=== PATIENT | female | born 1960 | race Caucasian/White ===

== ENCOUNTER 2021-03-31 05:57 | Day surgery (SDC) | payer OTHER, SELFPAY ==
[2021-03-31 06:34] VITALS: BP 152/90; PULSE 77; RESP 18; TEMP 36.6; O2SAT 98; BMI 45.6
[2021-03-31] MEDS: Lactated Ringers 1,000 ML 100 ML IV (07:06)
--- NOTE | 2021-03-31 07:15 | EKG12_ITS ---
Test Reason : PREOP Blood Pressure : / mmHG Vent. Rate : 074 BPM Atrial Rate : 074 BPM P-R Int : 214 ms QRS Dur : 074 ms QT Int : 396 ms P-R-T Axes : 016 -14 040 degrees QTc Int : 439 ms Sinus rhythm with 1st degree A-V block Otherwise normal ECG Confirmed by IRAJ EDWARD, RITO ([id number]), editor managing director DARRION JUNIOR ([id number]) on 04/06/2021 9:12:26 AM Referred By: Pamela Mcdonnell Confirmed By:RITO GALO MD
[2021-03-31 07:23] LABS: Anion Gap 7 (5-15); BUN 22 mg/dL (7-18); BUN/Creat Ratio 20.6 RATIO (10-20); Calcium,Total 9.1 mg/dL (8.5-10.1); Chloride 107 mmol/L (98-107); Creatinine, Serum 1.07 mg/dL (0.55-1.02); EST Glomerular Filtration Rate 55 mL/min (>60); Est Glom Filt Rate - Afr Amer 67 mL/min (>60); Estimated Creatinine Clearance 52.34 ml/min; Glucose 170 mg/dL (74-106); Potassium 4.3 mmol/L (3.5-5.1); Sodium Level 139 mmol/L (136-145)
--- NOTE | 2021-03-31 07:30 | BLA_PTH ---
PATIENT: MALGORZATA SANTANA [place] [facility] [id number] AGE/SX: 60/F ROOM: RE03/31/[address]: Dr. Pamela Mcdonnell MD : 1960 BED: DIS: 03/31/2021 SPEC #: [id number] RECD: 03/31/21 10:22 STATUS: ZOHAIB RELeann #: [id number] ADRIAN: 03/31/21 07:[address]: Pamela Mcdonnell DEPT: SURGICAL PATHOLOGY RECD BY: Diana Bass ENTERED: 03/31/21 11:03 SP TYPE: BLADDER BX OTHR DR: SPEEDY Diaz Tissues: Urinary bladder, NOS Procedures: Surgery Specimen Level IV HEADER OPERATION: Cysto, biopsy, fulguration, bladder tumor PRE-OP DIAGNOSIS: Lesion of bladder TISSUE SUBMITTED: Bladder lesion MICROSCOPIC DIAGNOSIS Bladder lesion, biopsy: Fragments of squamous mucosa with extensive hyperkeratosis and mild chronic inflammation. Negative for malignancy. See comment. SHYANNE:ivelisse 04/03/2021 COMMENT The entire specimen consists of fragments of squamous mucosa. Focal bacterial colonization are also noted in superficial keratinized layer. Detrusor muscle is not seen in the specimen. Clinical correlation and appropriate follow up are necessary. Case has been reviewed in consultation with Dr. Marino who concurs with the above diagnosis. IDC:AM MICROSCOPIC DESCRIPTION Slides are reviewed. GROSS DESCRIPTION Received in fixative is one container labeled with the patient's name and designated bladder lesion. The specimen consists of multiple irregular fragments of iglesias-pink soft tissue that in aggregate measure 1 x 0.3 x 0.1 cm. The specimen is totally submitted in one cassette. / SHYANNE:ivelisse 03/31/21 TC:5 CPT: 57523
--- NOTE | 2021-03-31 07:50 | PCM.HP.STD ---
HPI - General HPI Narrative MALGORZATA SANTANA, is a 60 F who presents for bladder biopsy of lesion found in the office. Informed consent was obtained. [facility]LY [facility] Medical History (Updated 03/31/21 @ 07:[address] Pamela Mcdonnell MD) Alcohol use Anemia Arthritis Dietary restriction High cholesterol History of diverticulitis History of edema History of renal disease Hypertension Insulin dependent diabetes mellitus Lesion of bladder Non-smoker Wears glasses Home Medications aspirin [Aspir-81] 81 mg PO DAILY 03/30/21 [History Last Taken Unknown] clonidine HCl 0.1 mg PO BID 03/30/21 [History Last Taken 03/31/21] cyanocobalamin (vitamin B-12) [Vitamin B-12] 1,000 mcg PO DAILY 03/30/21 [History Last Taken Unknown] d-mannose 2,000 mg PO DAILY 03/30/21 [History Last Taken Unknown] estradiol 1 g VAGINAL MOWEFR 03/30/21 [History Last Taken Unknown] ibuprofen 600 mg PO DAILY 03/30/21 [History Last Taken Unknown] insulin glargine [Lantus Solostar U-100 Insulin] 40 unit SUBCUT DAILY 03/30/21 [History Last Taken Unknown] insulin glargine [Lantus Solostar U-100 Insulin] 50 unit SUBCUT QPM 03/30/21 [History Last Taken 03/30/21] simvastatin 40 mg PO DAILY 03/30/21 [History Last Taken Unknown] sitagliptin [Januvia] 100 mg PO DAILY 03/30/21 [History Last Taken Unknown] Allergy/AdvReac Type Severity Reaction Status Date / Time amoxicillin Allergy Swelling Verified 03/30/21 09:46 ciprofloxacin Allergy Rash Verified 03/30/21 09:46 nitrofurantoin Allergy Hives Verified 03/30/21 09:46 Penicillins Allergy EDEMA Verified 03/30/21 09:46 propoxyphene Allergy Rash Verified 03/30/21 09:46 [From Darvocet-N] Sulfa (Sulfonamide Allergy Hives Verified 03/30/21 09:46 Antibiotics) sulfamethoxazole Allergy Rash Verified 03/30/21 09:46 trimethoprim Allergy Swelling Verified 03/30/21 09:46 glipizide AdvReac PT UNSURE Verified 03/30/21 09:46 OF REACTION hydrochlorothiazide AdvReac cough Verified 03/31/21 06:31 lisinopril AdvReac COUGH Verified 03/30/21 09:46 metformin AdvReac Diarrhea Verified 03/30/21 09:46 PLASTIC TAPE Allergy Rash Uncoded 03/30/21 09:46 Surgical History History of Hx laparoscopic cholecystectomy Hx of colonoscopy Hx of hysterectomy Hx of total knee arthroplasty Social History Smoking Status: Never smoker ROS Constitutional Constitutional: Denies anorexia, body ache(s), change in weight, chills, fatigue or fever(s) Eyes Eyes: Denies change in vision ENT HEENT: Denies loss taste/smell Cardiovascular Cardiovascular: Denies chest pain, dizziness or dyspnea Respiratory/Chest Respiratory/Chest: Denies cough or difficulty clearing secretions Gastrointestinal Gastrointestinal: Denies abdominal pain, change in bowel habits, nausea, taste impaired or vomiting Genitourinary Genitourinary: Denies abdominal discomfort, dysuria or urinary hesitancy Musculoskeletal Musculoskeletal: Denies abnormal gait, difficulty walking or numbness Integumentary Integumentary: Denies changing lesions, new lesions or rash Neurologic Neurologic: Reports systems reviewed and no addt'l complaints, except as documented Psychiatric Psychiatric: Reports systems reviewed and no addt'l complaints, except as documented Endocrine Endocrinology: Reports systems reviewed and no addt'l complaints, except as documented Hematologic/Lymphatic Hematologic/Lymphatic: Reports systems reviewed and no addt'l complaints, except as documented Allergic/Immunologic Allergic/Immunologic: Reports systems reviewed and no addt'l complaints, except as documented Vital Signs Vital Signs Vital Signs: 03/31/21 06:34 Temperature 97.9 F Temperature Source Temporal Pulse Rate 77 Respiratory Rate 18 Respiratory Pattern Normal Blood Pressure 152/90 H Blood Pressure Mean 110 Blood Pressure Source Monitor Blood Pressure Position Semi-Fowlers Blood Pressure Location Left Forearm Pulse Ox 98 Oxygen Delivery Method Room Air Weight Weight: 128.3 kg Body Mass Index (BMI) 45.6 Physical Exam Const alert, oriented x3 and no apparent distress HEENT normocephalic and head/scalp atraumatic Nose: external nose normal External Ear: external ears normal Eyes General Eye: normal appearance of both eyes Neck supple General: trachea midline Lymph Lymphatic: no lymphedema noted Chest Chest: symmetrical chest wall rise Resp normal respiratory effort, normal air movement, no retractions and no use of accessory muscles Cardio regular rate and regular rhythm GI soft to palpation, non-tender and non-distended no CVA tenderness and external exam normal Back/Spine no CVA tenderness Extremity normal to inspection Skin no rashes or lesions noted, no wounds, no jaundice, no petechiae and no mottling Neuro oriented x3, CN's II-XII intact bilaterally and moves all extremities Psych mental status grossly normal and thought process normal Results Lab / Micro Data Result Diagrams: 03/31/21 06:56 03/31/21 06:56 Labs: Laboratory Results - last 24 hr 03/31/21 06:56: Sodium 139, Potassium 4.3, Chloride 107, Carbon Dioxide 25.0, Anion Gap 7, BUN 22 H, Creatinine 1.07 H, Estim Creat Clear Calc 52.34, Est GFR (MDRD) Af Amer 67, Est GFR (MDRD) Non-Af 55 L, BUN/Creatinine Ratio 20.6 H, Glucose 170 H, Calcium 9.1 Assessment & Plan Assessment/Plan (1) Lesion of bladder: PLAN: cystoscopy with bladder biopsy and fulguration under anesthesia. informed consent obtained Procedure Criteria Type of Procedure Procedure Type: Elective Elective Risks - COVID COVID Risk Discussion: The surgeon/proceduralist and patient have discussed in detail the risk of exposure to and/or potential harm posed by the COVID-19 virus with having a surgery/procedure at this time versus the risk of delaying the surgery/procedure. It is not possible to know either the risk of delaying the surgery or procedure or chance of getting an infection with perfect accuracy, but a joint decision was made between the patient and the surgeon/proceduralist to proceed at this time with the scheduled surgery/procedure as indicated on the consent form.
--- NOTE | 2021-03-31 07:55 | PCM.OPRPT ---
Problems Associated Problem List Diagnoses (1) Lesion of bladder: Report of Operation Date of Procedure: 03/31/21 Pre-Operative Diagnosis: bladder lesion Post-Operative Diagnosis: same Surgery/Procedure Performed:: cystoscopy with bladder biopsy and fulguration Surgeon: Pamela Mcdonnell Type of Anesthesia: General Specimen's removed: Bladder biopsies Description of Procedure: The patient is a 60-year-old female with recurrent urinary tract infections. On evaluation in the office was found to have abnormal weight plaque-like bladder lesions she now presents for definitive identification with biopsy. Informed consent was obtained. Patient was taken operating room and placed on the operating room table. Anesthesia monitored the head, neck, airway, IV access and vital signs throughout the case. Once anesthesia was appropriate ministered, the patient was placed into dorsal lithotomy position was prepped and draped in usual sterile fashion. The cystoscope was inserted through the urethra under direct visualization into the urinary bladder. The bladder appeared less erythematous than in the office. The lesions were found diffusely across the bladder neck and posterior bladder wall. In total 6 biopsies were taken with a flexible biopsy forcep. These were sent for pathologic evaluation. The sites were fulgurated for hemostatic control. At this time the patient's bladder was then emptied and the case was terminated. She tolerated the procedure well without complication and was awakened and taken to the recovery room in good condition. Grafts/Implants Used: none Complications none Admit VTE Documentation VTE Present on Admission: Yes VTE Mechan Device Prophylaxis: SCD's VTE Pharm Prophylaxis ordered?: No Reason prophylaxis not ordered:: Treatment Not Indicated
--- NOTE | 2021-03-31 07:56 | PCM.DC ---
Discharge Instructions Diet Discharge Diet: No restrictions Activity Discharge Activity: Return to Normal Activity May resume sexual activity in: No Restrictions Dressing / Incision Call your doctor if you observe: Fever of 101 or Higher, Inability to urinate, Inability to have a bowel movement and Uncontrolled pain Follow Up Care Please Follow Up With: Pamela Mcdonnell MD When: appt in the office in 1 week. call for appt Test Results: Test results from this visit will be discussed in further detail at your follow-up appointment, if applicable. Discharge Plan Admission Attending Provider: Pamela Mcdonnell Primary Care Provider: Jenna Barraza Discharge Orders/Prescriptions Prescriptions: New oxycodone-acetaminophen [oxycodone-acetaminophen] 1 TABLET tablet 2 tab PO Q8H PRN PRN (Reason: Pain) 4 Days Qty: 10 RF: 0 phenazopyridine [Pyridium] 200 MG tablet 200 mg PO TID PRN PRN (Reason: Bladder Spasms) 7 Days Qty: 30 RF: 0 Continued clonidine HCl 0.1 mg Tablet 0.1 mg PO BID RF: 0 cyanocobalamin (vitamin B-12) [Vitamin B-12] 1,000 mcg Tablet 1,000 mcg PO DAILY RF: 0 aspirin 81 mg Tablet,Delayed Release (Dr/Ec) 81 mg PO DAILY RF: 0 simvastatin 40 mg Tablet 40 mg PO DAILY RF: 0 ibuprofen 600 mg Tablet 600 mg PO DAILY RF: 0 estradiol 0.01 % (0.1 mg/gram) Cream 1 g VAGINAL MOWEFR RF: 0 Januvia 100 mg Tablet 100 mg PO DAILY RF: 0 Lantus Solostar U-100 Insulin 100 unit/mL (3 mL) Insulin Pen 40 unit SUBCUT DAILY RF: 0 Lantus Solostar U-100 Insulin 100 unit/mL (3 mL) Insulin Pen 50 unit SUBCUT QPM RF: 0 d-mannose 500 mg Capsule 2,000 mg PO DAILY RF: 0 Referrals / Follow Up: Jenna Barraza PA [Primary Care Provider] - Disposition Disposition (needs filled in before D/C Order can be placed): Home, Self Care
[2021-03-31 08:11] LABS: Hemoglobin A1c 7.2 % (3.8-5.6)
[2021-03-31 08:22] VITALS: BP 137/78; BP 152/90; PULSE 77; RESP 18; TEMP 35.9; O2SAT 96
[2021-03-31 08:30] VITALS: BP 138/78; BP 152/90; PULSE 74; RESP 16; O2SAT 96
[2021-03-31 08:41] LABS: Bedside Glucose 147 mg/dL (70-110)
[2021-03-31 08:45] VITALS: BP 133/73; BP 152/90; PULSE 63; RESP 18; O2SAT 98
[2021-03-31 09:00] VITALS: BP 125/73; BP 152/90; PULSE 63; RESP 16; TEMP 36.2; O2SAT 99
[2021-03-31 10:00] VITALS: BP 152/90
[2021-03-31 10:16] LABS: Bedside Glucose 176 mg/dL (70-110)
== END 2021-03-31 10:21 | disposition home or self-care (01) ==
LOC: SDC 06:01 → AC 06:03
PROVIDERS: Anesthesiology; PCP Physician Assistant Medical; Referring Provider Urology; Visit Provider Urology
PROC: 0TBB8ZX Excision of Bladder, Via Natural or Artificial Opening Endoscopic, Diagnostic (ICD-10-PCS; CPT 52224; principal; 2021-03-31 07:20)
DX: N32.9 Bladder disorder, unspecified (principal); D64.9 Anemia, unspecified; E11.9 Type 2 diabetes mellitus without complications; E78.00 Pure hypercholesterolemia, unspecified; I10 Essential (primary) hypertension; Z79.1 Long term (current) use of non-steroidal anti-inflammatories (NSAID); Z79.4 Long term (current) use of insulin; Z79.82 Long term (current) use of aspirin; Z87.440 Personal history of urinary (tract) infections
CPT/HCPCS: 00910; 52224; 80048; 82962; 83036; 88305; 93005; J7120

== ENCOUNTER 2021-05-09 08:38 | Day surgery (SDC) | payer OTHER, SELFPAY ==
[2021-05-09] VITALS (8 sets, daily range): BP systolic 115–158; BP diastolic 57–87; PULSE 62–77; RESP 16; TEMP 36.1–36.7; O2SAT 96–100; BMI 45.8
--- NOTE | 2021-05-09 | BLB_PTH ---
PATIENT: MALGORZATA SANTANA [place] [facility] [place][id number] AGE/SX: 60/F ROOM: RE05/09/[address]: Dr. Pamela Mcdonnell MD : 1960 BED: DIS: 05/09/2021 SPEC #: [id number] RECD: 05/09/21 14:27 STATUS: ZOHAIB RELeann #: [id number] ADRIAN: 05/09/21 00:[address]: Pamela Mcdonnell DEPT: SURGICAL PATHOLOGY RECD BY: Nahum Gayle ENTERED: 05/09/21 14:27 SP TYPE: TURB OTHR DR: SPEEDY Diaz Tissues: Urinary bladder, NOS Procedures: Surgery Specimen Level V HEADER OPERATION: Cysto, transurethral resection bladder lesions PRE-OP DIAGNOSIS: Lesion of bladder, urinary tract infection TISSUE SUBMITTED: Bladder biopsy MICROSCOPIC DIAGNOSIS Urinary bladder, transurethral resection: Fragments of benign squamous mucosa with hyperkeratosis. See comment. AM:ivelisse 05/10/2021 COMMENT Detrusor muscle is not represented in the biopsy. MICROSCOPIC DESCRIPTION Slides are reviewed. GROSS DESCRIPTION Received in fixative is one container labeled with the patient's name and designated bladder biopsy. The specimen consists of multiple irregular fragments of light iglesias soft tissue that in aggregate measure 2 x 0.8 x 0.1 cm. The specimen is totally submitted in one cassette. / AM:ivelisse 05/09/21 TC:5 CPT: 11176
[2021-05-09] MEDS: Lactated Ringers 1,000 ML 15 ML IV (09:26)
--- NOTE | 2021-05-09 09:34 | HP.PCM_ITS ---
HPI - General HPI Narrative MALGORZATA SANTANA, is a 60 F who presents for definitive management of her squamous metaplasia and hyperkeratosis of the bladder. Informed consent was obtained. [facility] Medical History (Updated 05/09/21 @ 09:[address] Pamela Mcdonnell MD) Alcohol use Anemia Arthritis Dietary restriction High cholesterol History of diverticulitis History of edema History of renal disease Hypertension Insulin dependent diabetes mellitus Lesion of bladder Non-smoker Urinary tract infection Wears glasses Home Medications Januvia 100 mg PO DAILY 03/30/21 [History Last Taken Unknown] Lantus Solostar U-100 Insulin 40 unit SUBCUT DAILY 03/30/21 [History Last Taken Unknown] Lantus Solostar U-100 Insulin 50 unit SUBCUT QPM 03/30/21 [History Last Taken 03/30/21] aspirin 81 mg PO DAILY 03/30/21 [History Last Taken Unknown] clonidine HCl 0.1 mg PO BID 03/30/21 [History Last Taken 05/09/21] cyanocobalamin (vitamin B-12) [Vitamin B-12] 1,000 mcg PO DAILY 03/30/21 [History Last Taken Unknown] d-mannose 250 mg PO BID 03/30/21 [History Last Taken Unknown] estradiol 1 g VAGINAL MOWEFR 03/30/21 [History Last Taken Unknown] simvastatin 40 mg PO DAILY 03/30/21 [History Last Taken Unknown] ascorbic acid (vitamin C) [Vitamin C] 500 mg PO DAILY 05/03/21 [History Last Taken Unknown] Allergy/AdvReac Type Severity Reaction Status Date / Time amoxicillin Allergy Swelling Verified 05/09/21 09:24 ciprofloxacin Allergy Rash Verified 05/09/21 09:24 nitrofurantoin Allergy Hives Verified 05/09/21 09:24 Penicillins Allergy EDEMA Verified 05/09/21 09:24 propoxyphene Allergy Rash Verified 05/09/21 09:24 [From Darvocet-N] Sulfa (Sulfonamide Allergy Hives Verified 05/09/21 09:24 Antibiotics) sulfamethoxazole Allergy Rash Verified 05/09/21 09:24 trimethoprim Allergy Swelling Verified 05/09/21 09:24 glipizide AdvReac PT UNSURE Verified 05/09/21 09:24 OF REACTION hydrochlorothiazide AdvReac cough Verified 05/09/21 09:24 lisinopril AdvReac COUGH Verified 05/09/21 09:24 metformin AdvReac Diarrhea Verified 05/09/21 09:24 PLASTIC TAPE Allergy Rash Uncoded 05/09/21 09:24 Surgical History History of biopsy of bladder History of Hx laparoscopic cholecystectomy Hx of colonoscopy Hx of hysterectomy Hx of total knee arthroplasty Social History Smoking Status: Never smoker ROS Constitutional Constitutional: Denies chills, fever(s) or weakness Eyes Eyes: Denies change in vision ENT HEENT: Denies change in voice, loss taste/smell or sore throat Cardiovascular Cardiovascular: Denies abdominal pain, diaphoresis, dyspnea, nausea, numbness in extremities, rapid heart rate or vomiting Respiratory/Chest Respiratory/Chest: Denies change in mental status, chest tightness, cough, dyspnea or inability to speak Gastrointestinal Gastrointestinal: Denies abdominal pain, nausea, taste impaired, vomiting or weight changes Genitourinary Genitourinary: Reports urinary urgency; Denies abdominal discomfort, burning urination or hematuria Musculoskeletal Musculoskeletal: Reports systems reviewed and no addt'l complaints, except as documented Integumentary Integumentary: Reports systems reviewed and no addt'l complaints, except as documented Neurologic Neurologic: Reports systems reviewed and no addt'l complaints, except as documented Endocrine Endocrinology: Reports systems reviewed and no addt'l complaints, except as documented Hematologic/Lymphatic Hematologic/Lymphatic: Reports systems reviewed and no addt'l complaints, except as documented Allergic/Immunologic Allergic/Immunologic: Reports systems reviewed and no addt'l complaints, except as documented Vital Signs Vital Signs Vital Signs: 05/09/21 09:26 Temperature 98.1 F Temperature Source Temporal Pulse Rate 77 Respiratory Rate 16 Respiratory Pattern Normal Blood Pressure 145/85 H Blood Pressure Mean 105 Blood Pressure Source Monitor Blood Pressure Position Semi-Fowlers Blood Pressure Location Left Arm Pulse Ox 96 Oxygen Delivery Method Room Air Weight Weight: 129 kg Body Mass Index (BMI) 45.8 Physical Exam Const alert, oriented x3 and no apparent distress HEENT normocephalic, head/scalp atraumatic, external ears normal, external nose normal and moist oral mucous membranes Nose: external nose normal Mouth: lips normal and tongue normal Eyes conjunctivae normal and no scleral icterus Neck supple General: trachea midline Lymph Lymphatic: no lymphedema noted Chest Chest: symmetrical chest wall rise Resp normal respiratory effort, normal air movement, no retractions and no use of accessory muscles Effort and Inspection: able to speak in complete sentences and symmetric chest movement Cardio regular rate and regular rhythm GI soft to palpation, non-tender and non-distended no CVA tenderness, external exam normal and appearance of the vagina normal Back/Spine no CVA tenderness and normal to inspection Extremity normal to inspection Skin no rashes or lesions noted, no wounds, skin turgor normal, no jaundice, no petechiae and no mottling Neuro oriented x3, CN's II-XII intact bilaterally and moves all extremities Psych mental status grossly normal, thought process normal, cooperative and affect normal Assessment & Plan Assessment/Plan (1) Lesion of bladder: (2) Urinary tract infection: PLAN: Proceed with cystoscopy, transurethral resection of bladder lesions under anesthesia. Informed consent obtained.
[2021-05-09 09:35] LABS: Bedside Glucose 155 mg/dL (70-110)
--- NOTE | 2021-05-09 09:41 | PCM.OPRPT ---
Problems Associated Problem List Diagnoses (1) Lesion of bladder: (2) Urinary tract infection: Report of Operation Date of Procedure: 05/09/21 Pre-Operative Diagnosis: Bladder lesions(squamous metaplasia with hyperkeratosis), recurrent urinary tract infection Post-Operative Diagnosis: Same Surgery/Procedure Performed:: Cystoscopy, transurethral resection of bladder lesions Description of Surgical Findings:: Deep resection at the left lateral wall. No obvious perforation. 22 Bulgarian Lloyd catheter placed at the conclusion of the case with clear urine/irrigant out. Surgeon: Pamela Mcdonnell Type of Anesthesia: General Specimen's removed: Bladder lesions Description of Procedure: The patient is a 60-year-old female with recurrent urinary tract infections. She underwent a cystoscopy with white lesions which were biopsied and found to be hyperkeratosis of squamous tissue. Informed consent was obtained for resection of these areas. She was taken to the operating room and placed on the operating room table. Anesthesia monitored the head, neck, airway, IV access and vital signs throughout the case. Once anesthesia was appropriately ministered the patient was placed into dorsal lithotomy position and was prepped and draped in usual sterile fashion. The resectoscope was inserted through the urethra into the urinary bladder using the obturator. The loop was then used to carefully resect these areas of abnormal mucosa. There were 3 lesions approximately 1 cm in size in the posterior bladder wall. There was a large lesion approximately 2.5 cm in size on the left lateral wall. During resection the obturator reflex was seen and this area of resection was slightly deeper than anticipated. No fat was seen. The detrusor was cauterized for hemostatic control. 1 large lesion was left untouched approximately 2.5 cm in diameter on the right lateral wall just lateral to the ureteral orifice. At this time, the bladder was left full and the cystoscope was removed. A 22 Bulgarian Lloyd catheter was inserted with 10 cc in the balloon. The patient was awakened and taken to the recovery room in good condition. Admit VTE Documentation VTE Present on Admission: Yes VTE Mechan Device Prophylaxis: SCD's VTE Pharm Prophylaxis ordered?: No Reason prophylaxis not ordered:: Treatment Not Indicated
--- NOTE | 2021-05-09 09:43 | PCM.DC ---
Discharge Instructions Dressing / Incision Catheter: Giraldo to leg bag Additional Dressing/Incision Instructions:: please give large bag also. Instruct patient to remove giraldo catheter on 05/15/21 before bed Follow Up Care Please Follow Up With: Pamela Mcdonnell MD When: Saturday. Test Results: Test results from this visit will be discussed in further detail at your follow-up appointment, if applicable. Discharge Plan Admission Attending Provider: Pamela Mcdonnell Primary Care Provider: Jenna Barraza Discharge Orders/Prescriptions Prescriptions: No Action clonidine HCl 0.1 mg Tablet 0.1 mg PO BID RF: 0 cyanocobalamin (vitamin B-12) [Vitamin B-12] 1,000 mcg Tablet 1,000 mcg PO DAILY RF: 0 aspirin 81 mg Tablet,Delayed Release (Dr/Ec) 81 mg PO DAILY RF: 0 simvastatin 40 mg Tablet 40 mg PO DAILY RF: 0 estradiol 0.01 % (0.1 mg/gram) Cream 1 g VAGINAL MOWEFR RF: 0 Januvia 100 mg Tablet 100 mg PO DAILY RF: 0 Lantus Solostar U-100 Insulin 100 unit/mL (3 mL) Insulin Pen 40 unit SUBCUT DAILY RF: 0 Lantus Solostar U-100 Insulin 100 unit/mL (3 mL) Insulin Pen 50 unit SUBCUT QPM RF: 0 d-mannose 500 mg Capsule 250 mg PO BID RF: 0 ascorbic acid (vitamin C) [Vitamin C] 500 mg Tablet,Chewable 500 mg PO DAILY RF: 0 Referrals / Follow Up: Jenna Barraza PA [Primary Care Provider] - Disposition Disposition (needs filled in before D/C Order can be placed): Home, Self Care
[2021-05-09] MEDS: Cefazolin 2 GM in 0.9% Normal Saline 100 ML IV (10:39)
[2021-05-09 11:55] LABS: Bedside Glucose 106 mg/dL (70-110)
== END 2021-05-09 14:14 | disposition home or self-care (01) ==
LOC: SDC 08:42 → AC 08:43
PROVIDERS: PCP Physician Assistant Medical; Referring Provider Urology; Visit Provider Urology
PROC: 0TBB8ZZ Excision of Bladder, Via Natural or Artificial Opening Endoscopic (ICD-10-PCS; CPT 52235; principal; 2021-05-09 10:20)
DX: N32.9 Bladder disorder, unspecified (principal); N39.0 Urinary tract infection, site not specified; D64.9 Anemia, unspecified; E11.9 Type 2 diabetes mellitus without complications; E78.00 Pure hypercholesterolemia, unspecified; I10 Essential (primary) hypertension; Z79.4 Long term (current) use of insulin; Z79.82 Long term (current) use of aspirin; Z79.899 Other long term (current) drug therapy; Z87.440 Personal history of urinary (tract) infections
CPT/HCPCS: 52235; 52354; 82962; 88307; J7120; J2405

== ENCOUNTER 2021-06-20 15:38 | Outpatient (CLI) | payer OTHER, SELFPAY ==
[2021-06-20 17:44] LABS: Hematocrit 40.5 % (37-47); Mean Corp Hgb Conc 32.1 g/dL (32-36); Mean Corpuscular Hgb 28.4 pg (27.0-32.0); Mean Corpuscular Volume 88.4 fL (81-99); Mean Platelet Vol. 9.8 fl (6.2-12.0); Platelet Count 304 K/mm3 (150-450); RBC Distribution Width CV 13.6 % (11.6-14.6); RBC Distribution Width SD 43.8 fl (35.1-43.9); Red Blood Count 4.58 M/mm3 (4.2-5.4); White Blood Count 8.9 K/mm3 (4.4-11.0)
[2021-06-20 17:57] LABS: Anion Gap 8 (5-15); BUN 28 mg/dL (7-18); BUN/Creat Ratio 26.7 RATIO (10-20); Calcium,Total 9.3 mg/dL (8.5-10.1); Chloride 108 mmol/L (98-107); Creatinine, Serum 1.05 mg/dL (0.55-1.02); EST Glomerular Filtration Rate 57 mL/min (>60); Est Glom Filt Rate - Afr Amer 69 mL/min (>60); Glucose 107 mg/dL (74-106); Potassium 3.8 mmol/L (3.5-5.1); Sodium Level 138 mmol/L (136-145)
[2021-06-20 18:24] LABS: Hemoglobin A1c 7.9 % (3.8-5.6)
== END 2021-06-20 23:59 | disposition short-term general hospital (02) ==
LOC: MTLAB 15:39
PROVIDERS: Anesthesiology; PCP Physician Assistant Medical; Referring Provider Urology; Visit Provider Urology
DX: Z01.818 Encounter for other preprocedural examination (principal)
CPT/HCPCS: 36415; 80048; 83036; 85027

== ENCOUNTER 2021-06-26 06:48 | Day surgery (SDC) | payer OTHER, SELFPAY ==
[2021-06-26 07:11] VITALS: BP 150/77; PULSE 79; RESP 18; TEMP 36.1; O2SAT 98; BMI 45.5
[2021-06-26] MEDS: Lactated Ringers 1,000 ML 15 ML IV (07:28)
[2021-06-26 08:06] LABS: Bedside Glucose 172 mg/dL (70-110)
--- NOTE | 2021-06-26 08:08 | PCM.OPRPT ---
Problems Associated Problem List Diagnoses (1) Lesion of bladder: Report of Operation Date of Procedure: 06/26/21 Pre-Operative Diagnosis: (Squamous metaplasia with hyperkeratosis) bladder lesion, recurrent urinary tract infections Post-Operative Diagnosis: Same Surgery/Procedure Performed:: Cystoscopy with fulguration of bladder lesion, area treated approximately 2.3 cm diameter. Surgeon: Pamela Mcdonnell Type of Anesthesia: General Description of Procedure: The patient is a 61-year-old female with recurrent urinary tract infections found to have squamous metaplasia with hyperkeratosis on bladder biopsy. There were several lesions occupying the area of the trigone and posterior bladder wall. She presents for resection of these lesions. Informed consent was obtained. The patient was taken the operating room and placed on the operating room table. Anesthesia monitored the head, neck, airway, IV access and vital signs throughout the case. Once anesthesia was appropriate ministered the patient was placed into dorsal lithotomy position and was prepped and draped in usual sterile fashion. The resectoscope was inserted through the urethra under direct visualization into the urinary bladder. The area of resection from the last case was completely visualized and the significant majority of the tissue was found to be free from visible lesions. The areas were much smaller in size and the mucosal layer was removed using the loop cut and cautery. There were no injuries to the bladder identified. Bilateral ureteral orifices were left untouched. Areas treated were the patient's right lateral bladder wall an area of approximately 1.5 cm, one 5 mm area in the posterior bladder wall and a 3 mm lesion on the left bladder wall laterally. No tissue was sent for analysis today. The patient's bladder was then emptied after hemostasis was achieved. She was awakened and taken to the recovery room in good condition. There were no complications during this procedure. Grafts/Implants Used: none Complications None Admit VTE Documentation VTE Present on Admission: Yes VTE Mechan Device Prophylaxis: SCD's VTE Pharm Prophylaxis ordered?: No Reason prophylaxis not ordered:: Treatment Not Indicated
--- NOTE | 2021-06-26 08:10 | PCM.DC ---
Discharge Instructions Diet Discharge Diet: No restrictions Activity Discharge Activity: Return to Normal Activity and May Not Drive (While taking narcotics) Dressing / Incision Call your doctor if you observe: Fever of 101 or Higher, Inability to urinate and Inability to have a bowel movement Follow Up Care Please Follow Up With: Pamela Mcdonnell MD When: In the office next week, call for appointment Test Results: Test results from this visit will be discussed in further detail at your follow-up appointment, if applicable. Discharge Plan Admission Attending Provider: Pamela Mcdonnell Primary Care Provider: Jenna Barraza Discharge Orders/Prescriptions Prescriptions: New oxycodone-acetaminophen [oxycodone-acetaminophen] 1 TABLET tablet 2 tab PO Q8H PRN PRN (Reason: Pain) 7 Days Qty: 20 RF: 0 phenazopyridine [Pyridium] 200 MG tablet 200 mg PO TID PRN PRN (Reason: Bladder Spasms) 7 Days Qty: 30 RF: 0 Continued clonidine HCl 0.1 mg Tablet 0.1 mg PO BID RF: 0 cyanocobalamin (vitamin B-12) [Vitamin B-12] 1,000 mcg Tablet 1,000 mcg PO DAILY RF: 0 aspirin 81 mg Tablet,Delayed Release (Dr/Ec) 81 mg PO DAILY RF: 0 simvastatin 40 mg Tablet 40 mg PO DAILY RF: 0 estradiol 0.01 % (0.1 mg/gram) Cream 1 g VAGINAL MOWEFR RF: 0 Januvia 100 mg Tablet 100 mg PO DAILY RF: 0 Lantus Solostar U-100 Insulin 100 unit/mL (3 mL) Insulin Pen 40 unit SUBCUT DAILY RF: 0 Lantus Solostar U-100 Insulin 100 unit/mL (3 mL) Insulin Pen 50 unit SUBCUT QPM RF: 0 d-mannose 500 mg Capsule 500 mg PO BID RF: 0 ascorbic acid (vitamin C) [Vitamin C] 500 mg Tablet,Chewable 500 mg PO DAILY RF: 0 cephalexin 250 mg capsule 250 mg PO QHS RF: 0 Probiotic 10 billion cell Capsule 10,000 mmu cells PO DAILY RF: 0 Referrals / Follow Up: Jenna Barraza PA [Primary Care Provider] - Disposition Disposition (needs filled in before D/C Order can be placed): Home, Self Care
[2021-06-26 09:06] VITALS: BP 119/65; BP 150/77; PULSE 74; RESP 12; TEMP 36.8; O2SAT 95
[2021-06-26 09:15] VITALS: BP 123/69; BP 150/77; PULSE 68; RESP 14; O2SAT 96
[2021-06-26 09:26] LABS: Bedside Glucose 171 mg/dL (70-110)
[2021-06-26 09:30] VITALS: BP 122/71; BP 150/77; PULSE 64; RESP 16; O2SAT 96
[2021-06-26 09:50] VITALS: BP 125/67; BP 150/77; PULSE 61; RESP 16; TEMP 36.8; O2SAT 96
[2021-06-26 10:38] VITALS: BP 150/77; BP 150/82; PULSE 65; RESP 14; TEMP 36.4; O2SAT 98
== END 2021-06-26 23:59 | disposition home or self-care (01) ==
LOC: SDC 06:49 → AC 06:51
PROVIDERS: PCP Physician Assistant Medical; Visit Provider Urology
PROC: 0TBB8ZZ Excision of Bladder, Via Natural or Artificial Opening Endoscopic (ICD-10-PCS; CPT 52214; principal; 2021-06-26 08:10)
DX: N32.89 Other specified disorders of bladder (principal); E11.9 Type 2 diabetes mellitus without complications; Z79.4 Long term (current) use of insulin; N39.0 Urinary tract infection, site not specified; I10 Essential (primary) hypertension; E78.00 Pure hypercholesterolemia, unspecified; Z87.442 Personal history of urinary calculi; Z87.19 Personal history of other diseases of the digestive system; Z79.899 Other long term (current) drug therapy
CPT/HCPCS: 52214; 00910; 82962; J7120; J2405

== ENCOUNTER 2024-09-15 22:27 | Emergency (ER) | payer OTHER, SELFPAY ==
[2024-09-15 22:30] VITALS: BP 209/99; PULSE 70; RESP 23; TEMP 36.6; O2SAT 100; BMI 40.4
[2024-09-15 22:32] VITALS: BP 147/75; PULSE 69; RESP 17; TEMP 36.6; O2SAT 97
--- NOTE | 2024-09-15 23:00 | CT_ITS ---
PROCEDURE: BRAIN/HEAD WITHOUT CONTRAST 09/15/2024 REASON FOR EXAM: CONFUSION TECHNIQUE: Head CT without intravenous contrast. Coronal and Sagittal reconstruction series were provided. One or more dose reduction techniques were used (e.g., Automated exposure control, adjustment of the mA and/or kV according to patient size, use of iterative reconstruction technique. RADIATION DOSE SUMMARY: CTDlvol: 44 mGy DLP: 796 mGycm COMPARISON: None. FINDINGS: A few scattered hypodense foci in the periventricular and subcortical white matter suggestive of mild chronic ischemic white matter disease. Normal size of the ventricles and extra-axial spaces for the patient's age. Normal white matter tracts of the supratentorial brain. Normal basal ganglia and thalami. Normal brainstem. Normal cerebellum. There is no demonstrated extra-axial, intraparenchymal, or intraventricular hemorrhage. There are no findings of an acute ischemic infarction. Normal calvarium. There is no demonstrated fracture. Normal soft tissue structures. Normal visualized paranasal sinuses. CT/Brain/Head without Contrast IMPRESSION: No CT evidence of an acute brain abnormality. Reading Location: [id number].[facility]
[2024-09-15 23:34] LABS: Absolute Lymphocyte Count 2.85 X10^3/uL (0.83-4.51); Basophil# 0.07 X10^3/uL; Basophil% 0.8 % (0-1); Eosinophil# 0.25 X10^3/uL; Eosinophils% 2.8 % (0-5); Hematocrit 39.9 % (37-47); Hemoglobin 13.5 g/dL (12.0-15.0); Lymphocyte # 2.85 X10^3/ul (0.83-4.51); Lymphocyte % 31.6 % (19-41); Mean Corp Hgb Conc 33.8 g/dL (32-36); Mean Corpuscular Hgb 28.9 pg (27.0-32.0); Mean Corpuscular Volume 85.4 fL (81-99); Mean Platelet Vol. 9.6 fl (6.2-12.0); Monocyte# 0.82 X10^3/uL; Monocyte% 9.1 % (0-10); NRBC Flagged by Analyzer 0 % (0-5); Neutrophil # 4.98 X10^3/uL (2.7-7.7); Neutrophil % 55.1 % (47-70); Platelet Count 300 K/mm3 (150-450); RBC Distribution Width CV 13.4 % (11.6-14.6); RBC Distribution Width SD 42.1 fl (35.1-43.9); Red Blood Count 4.67 M/mm3 (4.2-5.4)
[2024-09-15 23:41] LABS: Mucous, Urine 0 SEEN /hpf (<or=2+)
[2024-09-15 23:43] LABS: Color, Urine Yellow (Yellow); Glucose, Dipstick Normal (Normal); Ketone-Dipstick Negative (Negative); Leukocyte Esterase-Dipstick 500 /ul (Negative); Nitrite-Dipstick Positive (Negative); Occult Blood-Urine 150 /ul (Negative); Protein-Dipstick Negative (Negative); Urine Bilirubin Dipstick Negative (Negative); Urine Clarity Clear (Clear); Urine Urobilinogen Normal (Normal)
[2024-09-15 23:55] LABS: Alcohol, Blood (Medical)-Serum < 10.1 mg/dL (<=10.0)
[2024-09-15 23:56] LABS: Ammonia < 10.0 umol/L (11-51)
[2024-09-16 00:02] LABS: AST(SGOT) 31 U/L (<=31); Alanine Aminotransfer ALT/SGPT 21 U/L (<=34); Albumin, Serum 4.5 g/dL (3.4-4.8); Alkaline Phosphatase 86 U/L (35-104); Anion Gap 13 (5-15); BUN 20 mg/dL (4-19); BUN/Creat Ratio 19.3 RATIO (10-20); Bilirubin, Direct 0.15 mg/dL (0.00-0.30); Calcium,Total 10.2 mg/dL (7.6-11.0); Carbon Dioxide 23.8 mmol/L (21.0-32.0); Chloride 103 mmol/L (98-108); Creatinine, Serum 1.05 mg/dL (0.70-1.20); EST Glomerular Filtration Rate 59 (>60); Globulin 3.8 g/dL (2.2-4.2); Glucose 124 mg/dL (70-99); Potassium 4.2 mmol/L (3.3-5.1); Protein, Total 8.2 g/dL (5.9-8.4); Sodium Level 139 mmol/L (133-145); Total Bilirubin 0.36 mg/dL (0.00-1.30)
[2024-09-16 00:09] LABS: Amphetamine Urine NEGATIVE (<1000 ng/mL); Barbiturate Urine NEGATIVE (< 200 ng/mL); Benzodiazepine Urine NEGATIVE (< 200 ng/mL); Buprenorphine Urine NEGATIVE (< 200 ng/mL); Cocaine Urine NEGATIVE (< 300 ng/mL); Fentanyl, Urine NEGATIVE; Methadone Urine NEGATIVE (< 300 ng/mL); Opiates Urine NEGATIVE (< 300 ng/mL); Oxycodone, Urine NEGATIVE (< 100 ng/mL); PCP Urine NEGATIVE (< 25 ng/mL); THC Urine NEGATIVE (< 50 ng/mL)
[2024-09-16 00:29] VITALS: BP 163/84; PULSE 68; RESP 17; O2SAT 99
[2024-09-16 00:33] LABS: Bacteria 2+ /hpf (None Seen); Red Blood Cells-Urine 0-5 SEEN /hpf (0-5); Squamous Epithelial Cells - UA 0-5 SEEN /hpf (5-10); White Blood Cells 10-25 SEEN /hpf (0-5)
--- NOTE | 2024-09-16 00:55 | EX.ED.DYSGE1 ---
HPI History of Present Illness Chief Complaint: Confusion Informant: patient and family Narrative Narrative: Patient is a 64-year-old female with past med history of hypertension hyperlipidemia and insulin-dependent diabetes. She also states that she gets UTIs frequently. She states over the past 2 to 3 days she has folic her urine has been slightly discolored and has a strong odor. Patient states that today she has just felt off and has had difficulty remembering what she did throughout the day. Reportedly the patient's came home this evening and felt that she was acting differently and the patient was said she was confused and there was concern for infection so she was brought in for evaluation. Patient denies any new medications she denies any alcohol use or illicit drug use [facility] Medical History (Updated 09/16/24 @ 02:[address] Hema Fay, ) Urinary tract infection Lesion of bladder Wears glasses Alcohol use Insulin dependent diabetes mellitus History of renal disease Arthritis Anemia High cholesterol Dietary restriction History of diverticulitis Non-smoker History of edema Hypertension Home Medications ?Medication ?Instructions ?Recorded ?Last Taken ?Type aspirin 81 mg tablet,delayed 81 mg PO DAILY 03/30/21 Unknown History release clonidine HCl 0.1 mg tablet 0.1 mg PO BID 03/30/21 06/26/21 History cyanocobalamin (vitamin B-12) 1,000 mcg PO DAILY 03/30/21 Unknown History 1,000 mcg tablet (Vitamin B-12) d-mannose 500 mg capsule 500 mg PO BID 03/30/21 Unknown History insulin glargine 100 unit/mL (3 50 unit subcut DAILY 03/30/21 Unknown History mL) subcutaneous pen (Lantus Solostar U-100 Insulin) insulin glargine 100 unit/mL (3 50 unit subcut QPM 03/30/21 03/30/21 History mL) subcutaneous pen (Lantus Solostar U-100 Insulin) simvastatin 40 mg tablet 40 mg PO DAILY 03/30/21 Unknown History Lactobacillus acidophilus 10 10,000 mmu cells PO DAILY 06/19/21 Unknown History billion cell capsule (Probiotic) semaglutide 1 mg/dose (4 mg/3 mL) 1 mg subcut QWEEK 09/15/24 Unknown History subcutaneous pen injector (Ozempic) cephalexin 500 mg capsule 500 mg PO TID 7 days #21 caps 09/16/24 Unknown Rx Allergy/AdvReac Type Severity Reaction Status Date / Time adhesive tape Allergy Rash Verified 09/15/24 22:29 amoxicillin Allergy Swelling Verified 09/15/24 22:29 ciprofloxacin Allergy Rash Verified 09/15/24 22:29 nitrofurantoin Allergy Hives Verified 09/15/24 22:29 Penicillins Allergy EDEMA Verified 09/15/24 22:29 propoxyphene (From Allergy Rash Verified 09/15/24 22:29 Darvocet-N) Sulfa (Sulfonamide Allergy Hives Verified 09/15/24 22:29 Antibiotics) sulfamethoxazole Allergy Rash Verified 09/15/24 22:29 trimethoprim Allergy Swelling Verified 09/15/24 22:29 glipizide AdvReac PT UNSURE Verified 09/15/24 22:29 OF REACTION hydrochlorothiazide AdvReac cough Verified 09/15/24 22:29 lisinopril AdvReac COUGH Verified 09/15/24 22:29 metformin AdvReac Diarrhea Verified 09/15/24 22:29 Surgical History Hx of transurethral destruction of bladder lesion History of biopsy of bladder Hx of hysterectomy Hx of colonoscopy Hx laparoscopic cholecystectomy Hx of total knee arthroplasty History of Social History Smoking Status: Never smoker ROS ROS ED Constitutional Constitutional ED: Denies chills or fever(s) Eyes Eyes: Denies blurry vision or change in vision ENT ENT ED: Denies rhinorrhea or sore throat Cardiovascular Cardiovascular: Denies chest pain, palpitations or racing heartbeat Respiratory/Chest Respiratory/Chest: Denies cough or dyspnea Gastrointestinal Gastrointestinal: Denies abdominal pain, diarrhea, nausea or vomiting Genitourinary Genitourinary ED: Denies dysuria or urinary frequency Musculoskeletal Musculoskeletal: Denies myalgias Integumentary Denies rash Neurologic Neurologic: Reports other Details: Positive confusion ; Denies headache(s), paresthesias or weakness Hematologic/Lymphatic Hematologic/Lymphatic: Denies easy bleeding or easy bruising EXAM Physical Exam Const Vital Signs: 09/15/24 22:30 09/15/24 22:32 09/16/24 00:29 Temperature 97.9 F 97.9 F Temperature Source Temporal Oral Pulse Rate 70 69 68 Respiratory Rate 23 H 17 17 Blood Pressure 209/99 H 147/75 H 163/84 H Blood Pressure Mean 135 99 110 Pulse Ox 100 97 99 Oxygen Delivery Method Room Air Room Air Room Air 09/16/24 01:07 09/16/24 02:00 Temperature 97.6 F L Temperature Source Pulse Rate 68 81 Respiratory Rate 15 18 Blood Pressure 171/81 H Blood Pressure Mean 111 Pulse Ox 99 98 Oxygen Delivery Method Room Air Positive well nourished, well developed and obese General Appearance ED: well developed; Negative for pallor Nutritional Appearance: obese HEENT HEENT Narrative: Normocephalic atraumatic No tongue or lip swelling no oral lesions no airway edema or compromise No findings in the posterior pharynx to suggest infection Eyes PERRL and EOMs intact bilaterally General Eye ED: Negative for scleral icterus Neck supple Neck Narrative: No nuchal rigidity or meningeal signs Resp normal respiratory effort and clear to auscultation bilaterally Cardio regular rate and regular rhythm Rate: other Other Details: Radial and carotid pulses are equal and symmetric GI normal to inspection, nondistended, normoactive bowel sounds, non-tender, non-distended and no masses GI Narrative: Soft nontender nondistended with normal active bowel sounds No voluntary guarding or rigidity or pulsatile mass Auscultation: normoactive bowel sounds Palpation: soft Extremity normal to inspection Neuro CN's II-XII intact bilaterally Neuro Narrative: GCS of 14 Patient is awake and alert to person and place she is disoriented to time which is not her baseline Otherwise cranial nerves II through XII are grossly intact without focal neurologic deficit No pronator drift no dysmetria no truncal ataxia Sensorium / Orientation: alert Psych mental status grossly normal Skin no rashes or lesions noted and no wounds Skin Narrative: No overlying soft tissue changes to suggest trauma or infection General Skin Exam: Negative for jaundice or pallor MDM MDM MDM Narrative Medical decision making narrative: Patient arrived to the ER hypertensive but has a past medical history of this and otherwise with stable vitals. She reported mild confusion indicating she could not remember what the year was or what she had done throughout the day. However despite this mild confusion she is still awake and alert to person and place and knows family members and there is no signs of an acute stroke and therefore there is no need to activate an acute stroke alert. Her confusion is most likely metabolic in nature and not neurologic based on her physical exam and history. In order to assess for potential spontaneous subarachnoid or subdural hemorrhage versus brain mass a CT was obtained. In order to assess for hepatic encephalopathy a liver function panel as well as ammonia were obtained which were normal. Myxedema coma was ruled out as TSH is within normal range. The patient's urine sample did show changes consistent with infection but as she is afebrile and there is no leukocytosis or left shift or signs of HARJINDER there is no need for admission. The patient's urine will be sent for culture and she will be started antibiotics secondary to this. At this time vitals have improved without provided medication her history and exam is consistent with mild delirium caused by the UTI but without signs of systemic infection or acute CVA I do not feel she requires admission and she can be discharged home on antibiotics History & Record Review Discussion w/independent historian: Patient and Family Lab Data Attestation: I reviewed the patient's lab results. Labs: Laboratory Results - last 24 hr 09/15/24 09/15/24 09/15/24 22:40 23:06 23:36 WBC 9.0 RBC 4.67 Hgb 13.5 Hct 39.9 MCV 85.4 MCH 28.9 MCHC 33.8 RDW Std Deviation 42.1 RDW Coeff of Kyree 13.4 Plt Count 300 MPV 9.6 Immature Gran % (Auto) 0.600 Neut % (Auto) 55.1 Lymph % (Auto) 31.6 [place] % (Auto) 9.1 Eos % (Auto) 2.8 Baso % (Auto) 0.8 Absolute Neuts (auto) 5.0 Absolute Lymphs (auto) 2.85 Nucleated RBC % 0 Sodium 139 Potassium 4.2 Chloride 103 Carbon Dioxide 23.8 Anion Gap 13 BUN 20 H Creatinine 1.05 Estim Creat Clear Calc 69.20 Est GFR (MDRD) Non-Af 59 L BUN/Creatinine Ratio 19.3 Glucose 124 H Calcium 10.2 Total Bilirubin 0.36 Direct Bilirubin 0.15 AST 31 ALT 21 Alkaline Phosphatase 86 Ammonia < 10.0 L Total Protein 8.2 Albumin 4.5 Globulin 3.8 TSH 2.490 Urine Color Yellow Urine Clarity Clear Urine pH 6.0 Ur Specific [place] 1.010 Urine Protein Negative Urine Glucose (UA) Normal Urine Ketones Negative Urine Occult Blood 150 H Urine Nitrite Positive H Urine Bilirubin Negative Urine Urobilinogen Normal Ur Leukocyte Esterase 500 H Urine RBC 0-5 SEEN Urine WBC 10-25 SEEN Ur Squamous Epith Cells 0-5 SEEN Urine Bacteria 2+ Urine Mucus 0 SEEN Urine Opiates Screen NEGATIVE U Buprenorphine Qual NEGATIVE Ur Oxycodone Screen NEGATIVE Urine Methadone Screen NEGATIVE Urine Fentanyl Screen NEGATIVE Ur Barbiturates Screen NEGATIVE Ur Phencyclidine Scrn NEGATIVE Ur Amphetamines Screen NEGATIVE U Benzodiazepines Scrn NEGATIVE Urine Cocaine Screen NEGATIVE U Cannabinoids Screen NEGATIVE Ethyl Alcohol < 10.1 Radiography Diagnostic Testing: Clinical Impression(s) from Imaging Studies Brain CT 09/15/24 23:00 IMPRESSION: No CT evidence of an acute brain abnormality. Reading Location: [id number] Discharge Plan Triage Chief Complaint: Confusion ED Provider: Hema Fay Dx/Rx/DC Orders Clinical Impression: UTI (urinary tract infection), Insulin dependent diabetes mellitus, Hypertension, Hyperlipidemia Instructions: Urinary Tract Infections in Women, What is Delirium? Prescriptions: New cephalexin 500 mg capsule 500 mg PO TID 7 Days Qty: 21 0RF No Action clonidine HCl 0.1 mg Tablet 0.1 mg PO BID cyanocobalamin (vitamin B-12) [Vitamin B-12] 1,000 mcg Tablet 1,000 mcg PO DAILY aspirin 81 mg Tablet,Delayed Release (Dr/Ec) 81 mg PO DAILY simvastatin 40 mg Tablet 40 mg PO DAILY insulin glargine [Lantus Solostar U-100 Insulin] 100 unit/mL (3 mL) Insulin Pen 50 unit SUBCUT DAILY insulin glargine [Lantus Solostar U-100 Insulin] 100 unit/mL (3 mL) Insulin Pen 50 unit SUBCUT QPM Rx Instructions: only took units last night d-mannose 500 mg Capsule 500 mg PO BID Probiotic 10 billion cell Capsule 10,000 mmu cells PO DAILY Ozempic 1 mg/dose (4 mg/3 mL) pen injector 1 mg subcut QWEEK Primary Care Provider: Jenna Barraza Referrals: Jenna Barraza PA [Primary Care Provider] - Activity Restrictions/Additional Instructions: Your workup showed a urinary tract infection which correlates with your history and exam. The mild confusion associated with it will resolve once the infection improves which will typically take 2 to 3 days. If you develop a fever or have worsening symptoms or any further concerns please return to the ER for repeat evaluation Print Language: Belarusian Disposition Disposition: Home, Self Care Discharge Date/Time: 09/16/24 02:13
[2024-09-16] MEDS: Ceftriaxone 1 GM/50 ML BAG IV (01:06)
[2024-09-16 01:07] VITALS: BP 171/81; PULSE 68; RESP 15; TEMP 36.4; O2SAT 99
[2024-09-16 02:00] VITALS: PULSE 81; RESP 18; O2SAT 98
== END 2024-09-16 02:13 | disposition home or self-care (01) ==
PROVIDERS: Emergency Provider Emergency Medicine; PCP Physician Assistant Medical; Visit Provider Emergency Medicine
DX: N39.0 Urinary tract infection, site not specified (principal); Z79.4 Long term (current) use of insulin; E11.9 Type 2 diabetes mellitus without complications; I10 Essential (primary) hypertension; E78.5 Hyperlipidemia, unspecified; R41.0 Disorientation, unspecified; E66.9 Obesity, unspecified; Z90.49 Acquired absence of other specified parts of digestive tract; Z90.710 Acquired absence of both cervix and uterus; Z87.440 Personal history of urinary (tract) infections
CPT/HCPCS: 70450; 80048; 80076; 80307; 81001; 82077; 82140; 84443; 85025; 87086; 87088; 87186; 96365; 99283; A4216

== ENCOUNTER 2024-09-30 19:38 | Emergency (ER) | payer OTHER, SELFPAY ==
[2024-09-30 19:39] VITALS: BP 183/95; PULSE 86; RESP 20; TEMP 37.1; O2SAT 95; BMI 41.3
[2024-09-30 20:33] VITALS: BP 189/75; PULSE 92; RESP 18; TEMP 38.3; O2SAT 99
[2024-09-30 20:38] LABS: Mucous, Urine 0 SEEN /hpf (<or=2+)
[2024-09-30 20:51] LABS: Color, Urine Straw (Yellow); Glucose, Dipstick Normal (Normal); Ketone-Dipstick Negative (Negative); Leukocyte Esterase-Dipstick 500 /ul (Negative); Nitrite-Dipstick Positive (Negative); Occult Blood-Urine 150 /ul (Negative); Urine Bilirubin Dipstick Negative (Negative); Urine Clarity Cloudy (Clear); Urine Urobilinogen Normal (Normal); Urine pH 6.5 (5.0 - 8.0)
--- NOTE | 2024-09-30 20:54 | EX.ED.DYSGE1 ---
HPI History of Present Illness Chief Complaint: Complaint Informant: patient Onset/Context/Timing Onset: Today Context: Sudden Onset Timing: Continuous Quality: Shaky Location: Generalized Worsened by: Nothing Relieved by: Nothing Narrative Narrative: Patient presents with fevers and chills that began today. Patient states she woke up and felt shaky and chilled all over. Patient admits to some dysuria and urinary frequency. Patient has a history of frequent urinary tract infections patient states her temperature at home was up to 101 at times. Patient states she has felt chilled and had shakes with her chills. Patient denies any nausea or vomiting. Patient denies any chest pain or shortness of breath. Patient states nothing makes her symptoms better and nothing makes them worse. [facility] Medical History Urinary tract infection Lesion of bladder Wears glasses Alcohol use Insulin dependent diabetes mellitus History of renal disease Arthritis Anemia High cholesterol Dietary restriction History of diverticulitis Non-smoker History of edema Hypertension Home Medications ?Medication ?Instructions ?Recorded ?Last Taken ?Type aspirin 81 mg tablet,delayed 81 mg PO DAILY 03/30/21 Unknown History release clonidine HCl 0.1 mg tablet 0.1 mg PO BID 03/30/21 06/26/21 History cyanocobalamin (vitamin B-12) 1,000 mcg PO DAILY 03/30/21 Unknown History 1,000 mcg tablet (Vitamin B-12) d-mannose 500 mg capsule 500 mg PO BID 03/30/21 Unknown History insulin glargine 100 unit/mL (3 50 unit subcut DAILY 03/30/21 Unknown History mL) subcutaneous pen (Lantus Solostar U-100 Insulin) insulin glargine 100 unit/mL (3 50 unit subcut QPM 03/30/21 03/30/21 History mL) subcutaneous pen (Lantus Solostar U-100 Insulin) simvastatin 40 mg tablet 40 mg PO DAILY 03/30/21 Unknown History Lactobacillus acidophilus 10 10,000 mmu cells PO DAILY 06/19/21 Unknown History billion cell capsule (Probiotic) semaglutide 1 mg/dose (4 mg/3 mL) 1 mg subcut QWEEK 09/15/24 Unknown History subcutaneous pen injector (Ozempic) cephalexin 500 mg capsule 500 mg PO Q6 7 days #28 CAPSULES 09/30/24 Unknown Rx ergocalciferol (vitamin D2) 1,250 1,250 mcg PO .COMPLEX 09/30/24 Unknown History mcg (50,000 unit) capsule propranolol 40 mg tablet 40 mg PO BID 09/30/24 Unknown History Allergy/AdvReac Type Severity Reaction Status Date / Time adhesive tape Allergy Rash Verified 09/30/24 19:43 amoxicillin Allergy Swelling Verified 09/30/24 19:43 ciprofloxacin Allergy Rash Verified 09/30/24 19:43 nitrofurantoin Allergy Hives Verified 09/30/24 19:43 Penicillins Allergy EDEMA Verified 09/30/24 19:43 propoxyphene (From Allergy Rash Verified 09/30/24 19:43 Darvocet-N) Sulfa (Sulfonamide Allergy Hives Verified 09/30/24 19:43 Antibiotics) sulfamethoxazole Allergy Rash Verified 09/30/24 19:43 trimethoprim Allergy Swelling Verified 09/30/24 19:43 glipizide AdvReac PT UNSURE Verified 09/30/24 19:43 OF REACTION hydrochlorothiazide AdvReac cough Verified 09/30/24 19:43 lisinopril AdvReac COUGH Verified 09/30/24 19:43 metformin AdvReac Diarrhea Verified 09/30/24 19:43 Surgical History Hx of transurethral destruction of bladder lesion History of biopsy of bladder Hx of hysterectomy Hx of colonoscopy Hx laparoscopic cholecystectomy Hx of total knee arthroplasty History of Social History Smoking Status: Never smoker ROS ROS ED Constitutional Constitutional ED: Reports chills and fever(s) Eyes Eyes: Denies blurry vision or change in vision ENT ENT ED: Denies rhinorrhea or sore throat Cardiovascular Cardiovascular: Denies chest pain or palpitations Respiratory/Chest Respiratory/Chest: Denies cough or dyspnea Gastrointestinal Gastrointestinal: Denies nausea or vomiting Genitourinary Genitourinary ED: Reports dysuria and hematuria Musculoskeletal Musculoskeletal: Denies back pain or neck pain Integumentary Denies abscess or rash Neurologic Neurologic: Denies headache(s) or weakness Allergic/Immunologic Allergic/Immunologic ED: Denies mouth swelling or urticaria EXAM Physical Exam Const Vital Signs: 09/30/24 19:39 09/30/24 20:33 09/30/24 21:33 Temperature 98.7 F 101 F H 103.5 F H Temperature Source Oral Oral Oral Pulse Rate 86 92 75 Respiratory Rate 20 H 18 16 Blood Pressure 183/95 H 189/75 H 145/52 H Blood Pressure Mean 124 113 83 Pulse Ox 95 99 98 Oxygen Delivery Method Room Air Room Air Room Air 09/30/24 22:33 Temperature 99.2 F H Temperature Source Oral Pulse Rate 90 Respiratory Rate 16 Blood Pressure 122/59 H Blood Pressure Mean 80 Pulse Ox 98 Oxygen Delivery Method Room Air Positive well nourished and well developed Constitutional Narrative: BMI is 41.3. General Appearance ED: well developed and NAD HEENT Reports moist mucous membranes Neck supple and no JVD Resp normal respiratory effort and clear to auscultation bilaterally Cardio regular rate and regular rhythm GI non-tender and non-distended Palpation: soft Extremity normal to inspection Neuro oriented x3, CN's II-XII intact bilaterally and no sensory deficits noted Sensorium / Orientation: alert Motor Exam: strength 5/5 throughout Psych mental status grossly normal MDM MDM MDM Narrative Medical decision making narrative: Differential diagnosis includes urinary tract infection, sepsis, viral illness, dehydration, electrolyte abnormality, and pyelonephritis. CBC will be obtained to assess for leukocytosis and anemia. Basic metabolic profile will be obtained to assess for electrolyte abnormality and renal function. Urinalysis will be obtained to assess for urinary tract infection and hematuria. CT scan of the abdomen and pelvis will be obtained to assess for pyelonephritis. Serum lactate will be obtained to assess for sepsis. Urine culture will be obtained to assess for urinary tract infection. Blood cultures will be obtained to assess for sepsis. History & Record Review Additional record(s) reviewed:: Prior outpatient record, Prior ED visit and Prior labs Lab Data Lab results narrative: Urinalysis was reviewed. Leukocyte esterase was 500. There were positive nitrates. There were 25-50 white blood cells and 3+ bacteria. There are 10-25 red blood cells. CBC was reviewed. White blood cell count was normal at 9.9. The remainder was also within normal limits. Basic metabolic profile was reviewed. BUN was slightly elevated at 23 and creatinine was slightly elevated at 1.28. These are consistent with previous results. Glucose was mildly elevated at 128. The remainder is within normal limits. Serum lactate was reviewed and was normal at 1.3. Labs: Laboratory Results - last 24 hr 04/30/25 04/30/25 04/30/25 20:20 20:30 20:45 WBC 9.9 RBC 4.31 Hgb 12.5 Hct 37.2 MCV 86.3 MCH 29.0 MCHC 33.6 RDW Std Deviation 43.9 RDW Coeff of Kyree 14.0 Plt Count 239 MPV 9.5 Immature Gran % (Auto) 0.500 Neut % (Auto) 80.8 H Lymph % (Auto) 11.8 L Cobb % (Auto) 5.5 Eos % (Auto) 1.0 Baso % (Auto) 0.4 Absolute Neuts (auto) 8.0 H Absolute Lymphs (auto) 1.17 Nucleated RBC % 0 Sodium 137 Potassium 3.9 Chloride 103 Carbon Dioxide 21.9 Anion Gap 13 BUN 23 H Creatinine 1.28 H Estim Creat Clear Calc 57.50 Est GFR (MDRD) Non-Af 47 L BUN/Creatinine Ratio 18.0 Glucose 128 H Lactic Acid 1.3 Calcium 9.4 Urine Color Straw Urine Clarity Cloudy Urine pH 6.5 Ur Specific [place] 1.010 Urine Protein TNP Urine Glucose (UA) Normal Urine Ketones Negative Urine Occult Blood 150 H Urine Nitrite Positive H Urine Bilirubin Negative Urine Urobilinogen Normal Ur Leukocyte Esterase 500 H Urine RBC 10-25 SEEN Urine WBC 25-50 SEEN Ur Squamous Epith Cells 0-5 SEEN Urine Bacteria 3+ Urine Mucus 0 SEEN U Random Total Protein 29.8 H Treatment and Re-Evaluation :: Patient was given IV fluids. Patient was given Tylenol. Patient was given a dose of Rocephin. Previous urine culture was reviewed which grew E. coli which was sensitive to everything. Patient was feeling better on reevaluation. Patient was advised of her findings. Patient does not meet sepsis criteria. I feel patient is able to be discharged home. Patient is given a prescription for Keflex. Patient was instructed to follow-up with her primary care physician and urologist in 3 to 5 days. Patient was instructed to return if worse in any way. Patient understood and was agreeable with the plan. All questions were answered. Discharge Plan Triage Chief Complaint: Complaint ED Provider: Mele Bright Dx/Rx/DC Orders Clinical Impression: Urinary tract infection, Fever Instructions: ED Fever Control (Adult), ED Cystitis Female Adult Prescriptions: New cephalexin 500 mg capsule 500 mg PO Q6 7 Days Qty: 28 0RF No Action clonidine HCl 0.1 mg Tablet 0.1 mg PO BID cyanocobalamin (vitamin B-12) [Vitamin B-12] 1,000 mcg Tablet 1,000 mcg PO DAILY aspirin 81 mg Tablet,Delayed Release (Dr/Ec) 81 mg PO DAILY simvastatin 40 mg Tablet 40 mg PO DAILY insulin glargine [Lantus Solostar U-100 Insulin] 100 unit/mL (3 mL) Insulin Pen 50 unit SUBCUT DAILY insulin glargine [Lantus Solostar U-100 Insulin] 100 unit/mL (3 mL) Insulin Pen 50 unit SUBCUT QPM Rx Instructions: only took units last night d-mannose 500 mg Capsule 500 mg PO BID Probiotic 10 billion cell Capsule 10,000 mmu cells PO DAILY Ozempic 1 mg/dose (4 mg/3 mL) pen injector 1 mg subcut QWEEK propranolol 40 mg tablet 40 mg PO BID ergocalciferol (vitamin D2) 1,250 mcg (50,000 unit) capsule 1,250 mcg PO .COMPLEX Rx Instructions: 1,250 mcg orally twice weekly; Primary Care Provider: Jenna Barraza Referrals: Pamela Mcdonnell MD [Med Staff - Active Staff] - 3-5 Days Jenna Barraza PA [Primary Care Provider] - 3-5 Days Print Language: Kyrgyz Disposition Disposition: Home, Self Care
[2024-09-30 21:03] LABS: White Blood Cells 25-50 SEEN /hpf (0-5)
[2024-09-30 21:04] LABS: Bacteria 3+ /hpf (None Seen); Red Blood Cells-Urine 10-25 SEEN /hpf (0-5)
[2024-09-30 21:05] LABS: Squamous Epithelial Cells - UA 0-5 SEEN /hpf (5-10)
[2024-09-30 21:16] LABS: Absolute Lymphocyte Count 1.17 X10^3/uL (0.83-4.51); Basophil# 0.04 X10^3/uL; Basophil% 0.4 % (0-1); Hematocrit 37.2 % (37-47); Hemoglobin 12.5 g/dL (12.0-15.0); Lymphocyte # 1.17 X10^3/ul (0.83-4.51); Lymphocyte % 11.8 % (19-41); Mean Corp Hgb Conc 33.6 g/dL (32-36); Mean Corpuscular Volume 86.3 fL (81-99); Mean Platelet Vol. 9.5 fl (6.2-12.0); Monocyte# 0.54 X10^3/uL; Monocyte% 5.5 % (0-10); NRBC Flagged by Analyzer 0 % (0-5); Neutrophil % 80.8 % (47-70); Platelet Count 239 K/mm3 (150-450); RBC Distribution Width SD 43.9 fl (35.1-43.9); Red Blood Count 4.31 M/mm3 (4.2-5.4); White Blood Count 9.9 K/mm3 (4.4-11.0)
[2024-09-30] MEDS: Acetaminophen 500 MG Tablet 1000 MG PO (21:21)
[2024-09-30] MEDS: Ceftriaxone 1 GM/50 ML BAG IV (21:21)
[2024-09-30] MEDS: 0.9% Normal Saline (1000mL) 1,000 ML 1000 ML IV (21:21)
[2024-09-30 21:33] VITALS: BP 145/52; PULSE 75; RESP 16; TEMP 39.7; O2SAT 98
[2024-09-30 21:37] LABS: Protein, Urine (Random) 29.8 mg/dL (0.0-12.0)
[2024-09-30 21:40] LABS: Anion Gap 13 (5-15); BUN 23 mg/dL (4-19); Calcium,Total 9.4 mg/dL (7.6-11.0); Carbon Dioxide 21.9 mmol/L (21.0-32.0); Chloride 103 mmol/L (98-108); Creatinine, Serum 1.28 mg/dL (0.70-1.20); EST Glomerular Filtration Rate 47 (>60); Glucose 128 mg/dL (70-99); Potassium 3.9 mmol/L (3.3-5.1); Sodium Level 137 mmol/L (133-145)
[2024-09-30 22:07] LABS: Lactic Acid 1.3 mmol/L (0.0-2.0)
[2024-09-30 22:33] VITALS: BP 122/59; PULSE 90; RESP 16; TEMP 37.3; O2SAT 98
[2024-09-30 22:51] VITALS: BP 125/66; PULSE 75; RESP 12; TEMP 37.3; O2SAT 100
== END 2024-09-30 23:33 | disposition home or self-care (01) ==
PROVIDERS: Emergency Provider Emergency Medicine; PCP Physician Assistant Medical; Visit Provider Emergency Medicine
DX: N39.0 Urinary tract infection, site not specified (principal); Z79.4 Long term (current) use of insulin; E11.9 Type 2 diabetes mellitus without complications; E78.00 Pure hypercholesterolemia, unspecified; R50.9 Fever, unspecified; I10 Essential (primary) hypertension; Z79.82 Long term (current) use of aspirin; Z79.899 Other long term (current) drug therapy; Z79.85 Long-term (current) use of injectable non-insulin antidiabetic drugs; Z90.710 Acquired absence of both cervix and uterus; Z90.49 Acquired absence of other specified parts of digestive tract; Z96.659 Presence of unspecified artificial knee joint
CPT/HCPCS: 80048; 81001; 83605; 84156; 85025; 87040; 87077; 87086; 87088; 87186; 96361; 96365; 99284; A4216

== ENCOUNTER 2024-10-26 16:45 | Emergency (ER) | payer OTHER, SELFPAY ==
[2024-10-26 16:46] VITALS: BP 152/80; PULSE 94; RESP 24; TEMP 37.2; O2SAT 96; BMI 42.7
--- NOTE | 2024-10-26 17:30 | CT_ITS ---
PROCEDURE: ABDOMEN/PELVIS W IV CONT ONLY 10/26/2024 REASON FOR EXAM: DYSURIA. BACK PAIN TECHNIQUE: Abdomen and pelvis CT with intravenous contrast. Coronal and Sagittal reconstruction series were provided. PATIENT PREPARATION: Per protocol CONTRAST: 97 mL Isovue 370 One or more dose reduction techniques were used (e.g., Automated exposure control, adjustment of the mA and/or kV according to patient size, use of iterative reconstruction technique. RADIATION DOSE SUMMARY: CTDlvol: 24.2 mGy DLP: 2243 mGycm COMPARISON: None FINDINGS: Lung bases: Unremarkable Liver: Normal size. No mass. Gallbladder: Surgically absent. Spleen: Normal size. Pancreas: Normal size without evidence of mass surrounding inflammation or ductal dilation. Calcification posterior to the pancreatic tail is nonspecific. Adrenals: Unremarkable Kidneys: Mild right perinephric stranding. There is mild right-sided hydronephrosis and proximal hydroureter. Subtle edematous appearance of the kidneys, [id number], more pronounced on the delayed phase. No significant left-sided hydronephrosis. There are areas of focal cortical thinning at the upper and lower poles of the left kidney. Simple cyst at the upper pole of the left kidney. There is mild wall enhancement of the renal pelvis and ureters bilaterally. No filling defect within the opacified ureters, though the right distal ureter is not well opacified. Bladder: Mild circumferential wall thickening. Reproductive Organs: Prior hysterectomy. Adnexal regions are unremarkable. Bowel: Hiatal hernia. Colonic diverticulosis without diverticulitis. No obstruction. Appendix: No significant dilation or inflammatory changes. Lymph nodes: No significant lymphadenopathy. Vasculature: [id number] diffuse atherosclerotic calcifications are noted. Bones: Bilateral L5 pars defects with grade 1 anterolisthesis of L5 on S1. Multilevel degenerative changes of the spine, worst at L5-S1. Soft tissues: Fat containing umbilical hernia CT/Abdomen/Pelvis W IV Cont ONLY IMPRESSION: 1. Findings suggestive of urinary tract infection, to include bilateral pyelon ephritis and pyelitis/ureteritis. No obstructing stone. 2. Areas of cortical thinning at the upper and lower poles of the left kidney. Reading Location: [id number]
[2024-10-26] MEDS: 0.9% Normal Saline (1000mL) 1,000 ML 1000 ML IV (17:36)
[2024-10-26] MEDS: Ketorolac 15 MG/ML Vial IV (17:38)
[2024-10-26] MEDS: Phenazopyridine 95 MG Tablet 190 MG PO (17:38)
[2024-10-26 17:45] LABS: Mucous, Urine 0 SEEN /hpf (<or=2+)
[2024-10-26 17:47] LABS: Color, Urine Yellow (Yellow); Glucose, Dipstick Normal (Normal); Ketone-Dipstick Negative (Negative); Leukocyte Esterase-Dipstick 500 /ul (Negative); Nitrite-Dipstick Positive (Negative); Occult Blood-Urine 50 /ul (Negative); Protein-Dipstick 100 mg/dl (Negative); Specific Gravity, Urine 1.015 (1.002-1.030); Urine Clarity Turbid (Clear); Urine Urobilinogen Normal (Normal)
[2024-10-26 17:48] VITALS: BP 125/66; PULSE 80; RESP 18; TEMP 37.3; O2SAT 97
[2024-10-26 17:52] LABS: Urine Bilirubin Dipstick 1 mg/dL (Negative)
[2024-10-26 17:59] LABS: Bacteria 3+ /hpf (None Seen); Red Blood Cells-Urine 10-25 SEEN /hpf (0-5); Squamous Epithelial Cells - UA 50-100 SEEN /hpf (5-10); White Blood Cells >100 SEEN /hpf (0-5)
[2024-10-26 18:00] VITALS: BP 124/63; PULSE 76; RESP 17; TEMP 37.3; O2SAT 97
[2024-10-26 18:05] LABS: Absolute Lymphocyte Count 1.79 X10^3/uL (0.83-4.51); Absolute Neutrophil Count 10.7 X10^3/uL (2.0-7.7); Basophil# 0.06 X10^3/uL; Basophil% 0.4 % (0-1); Eosinophil# 0.02 X10^3/uL; Eosinophils% 0.1 % (0-5); Hematocrit 33.2 % (37-47); Hemoglobin 10.9 g/dL (12.0-15.0); Lymphocyte # 1.79 X10^3/ul (0.83-4.51); Lymphocyte % 12.5 % (19-41); Mean Corp Hgb Conc 32.8 g/dL (32-36); Mean Corpuscular Hgb 28.6 pg (27.0-32.0); Mean Corpuscular Volume 87.1 fL (81-99); Monocyte# 1.64 X10^3/uL; Monocyte% 11.4 % (0-10); NRBC Flagged by Analyzer 0 % (0-5); Neutrophil # 10.74 X10^3/uL (2.7-7.7); Neutrophil % 74.8 % (47-70); POSITIVE DIFFERENTIAL YES; Platelet Count 208 K/mm3 (150-450); RBC Distribution Width SD 44.7 fl (35.1-43.9); Red Blood Count 3.81 M/mm3 (4.2-5.4); White Blood Count 14.4 K/mm3 (4.4-11.0)
--- NOTE | 2024-10-26 18:12 | EX.ED.DYSGE1 ---
HPI History of Present Illness Chief Complaint: Complaint Informant: patient Narrative Narrative: Presenting with dysuria suprapubic discomfort left flank pain with fever starting yesterday. History of UTI states had 2 last month. Was not hospitalized. She follow-up with neurology Dr. Mcdonnell states has a pending CT abdomen pelvis for structural evaluation with contrast. No vomiting. She has Pyridium at home. Multiple allergies tolerated cephalosporins in the past. Denies history of gastric ulcers or kidney injury. Prior similar symptoms: Yes PFSH PFSH Medical History Urinary tract infection Lesion of bladder Wears glasses Alcohol use Insulin dependent diabetes mellitus History of renal disease Arthritis Anemia High cholesterol Dietary restriction History of diverticulitis Non-smoker History of edema Hypertension Home Medications ?Medication ?Instructions ?Recorded ?Last Taken ?Type aspirin 81 mg tablet,delayed 81 mg PO DAILY 03/30/21 Unknown History release clonidine HCl 0.1 mg tablet 0.1 mg PO BID 03/30/21 06/26/21 History cyanocobalamin (vitamin B-12) 1,000 mcg PO DAILY 03/30/21 Unknown History 1,000 mcg tablet (Vitamin B-12) d-mannose 500 mg capsule 500 mg PO BID 03/30/21 Unknown History insulin glargine 100 unit/mL (3 50 unit subcut DAILY 03/30/21 Unknown History mL) subcutaneous pen (Lantus Solostar U-100 Insulin) insulin glargine 100 unit/mL (3 50 unit subcut QPM 03/30/21 03/30/21 History mL) subcutaneous pen (Lantus Solostar U-100 Insulin) simvastatin 40 mg tablet 40 mg PO DAILY 03/30/21 Unknown History Lactobacillus acidophilus 10 10,000 mmu cells PO DAILY 06/19/21 Unknown History billion cell capsule (Probiotic) semaglutide 1 mg/dose (4 mg/3 mL) 1 mg subcut QWEEK 09/15/24 Unknown History subcutaneous pen injector (Ozempic) cephalexin 500 mg capsule 500 mg PO Q6 7 days #28 CAPSULES 09/30/24 Unknown Rx ergocalciferol (vitamin D2) 1,250 1,250 mcg PO .COMPLEX 09/30/24 Unknown History mcg (50,000 unit) capsule propranolol 40 mg tablet 40 mg PO BID 09/30/24 Unknown History cefdinir 300 mg capsule 300 mg PO Q12H #14 caps 10/26/24 Unknown Rx ondansetron 4 mg disintegrating 4 mg PO Q8H PRN PRN Nausea #10 tabs 10/26/24 Unknown Rx tablet Allergy/AdvReac Type Severity Reaction Status Date / Time adhesive tape Allergy Rash Verified 10/26/24 16:45 amoxicillin Allergy Swelling Verified 10/26/24 16:45 ciprofloxacin Allergy Rash Verified 10/26/24 16:45 nitrofurantoin Allergy Hives Verified 10/26/24 16:45 Penicillins Allergy EDEMA Verified 10/26/24 16:45 propoxyphene (From Allergy Rash Verified 10/26/24 16:45 Darvocet-N) Sulfa (Sulfonamide Allergy Hives Verified 10/26/24 16:45 Antibiotics) sulfamethoxazole Allergy Rash Verified 10/26/24 16:45 trimethoprim Allergy Swelling Verified 10/26/24 16:45 glipizide AdvReac PT UNSURE Verified 10/26/24 16:45 OF REACTION hydrochlorothiazide AdvReac cough Verified 10/26/24 16:45 lisinopril AdvReac COUGH Verified 10/26/24 16:45 metformin AdvReac Diarrhea Verified 10/26/24 16:45 Surgical History Hx of transurethral destruction of bladder lesion History of biopsy of bladder Hx of hysterectomy Hx of colonoscopy Hx laparoscopic cholecystectomy Hx of total knee arthroplasty History of Social History Smoking Status: Never smoker ROS ROS ED Constitutional Constitutional ED: Reports fever(s); Denies chills or sweats ENT ENT ED: Denies sore throat Cardiovascular Cardiovascular: Denies chest pain, leg edema, palpitations or racing heartbeat Respiratory/Chest Respiratory/Chest: Denies cough, dyspnea or dyspnea on exertion Gastrointestinal Gastrointestinal: Reports abdominal pain; Denies diarrhea, nausea or vomiting Genitourinary Genitourinary ED: Reports dysuria; Denies hematuria or urinary frequency Musculoskeletal Musculoskeletal: Reports back pain; Denies extremity pain or neck pain Integumentary Denies rash or wounds Neurologic Neurologic: Denies headache(s), paresthesias or weakness EXAM Physical Exam Const Vital Signs: 10/26/24 16:46 10/26/24 17:48 10/26/24 18:00 Temperature 99 F 99.2 F H 99.2 F H Temperature Source Oral Oral Oral Pulse Rate 94 80 76 Respiratory Rate 24 H 18 17 Blood Pressure 152/80 H 125/66 H 124/63 H Blood Pressure Mean 104 85 83 Pulse Ox 96 97 97 Oxygen Delivery Method Room Air Room Air Room Air 10/26/24 19:00 10/26/24 20:00 10/26/24 20:20 Temperature 99.2 F H 98.6 F Temperature Source Oral Pulse Rate 88 71 71 Respiratory Rate 17 16 16 Blood Pressure 105/86 H 108/88 H 108/88 H Blood Pressure Mean 92 94 94 Pulse Ox 98 99 99 Oxygen Delivery Method Positive well nourished and well developed Constitutional Narrative: Nontoxic. General Appearance ED: well developed and NAD HEENT Reports moist mucous membranes normocephalic and atraumatic Eyes General Eye ED: Yes normal appearance of both eyes Neck full ROM Chest Wall Chest: Negative for tenderness Resp normal respiratory effort and normal air movement Effort and Inspection: symmetric chest movement; Negative for respiratory distress Cardio regular rate, regular rhythm and no murmurs Peripheral Pulses: pulses 2+ throughout GI normal to inspection, nondistended, normoactive bowel sounds and non-tender GI Narrative: Negative Casper's and McBurney's tenderness. Palpation: Negative for guarding or rebound tenderness present Back/Spine no CVA tenderness Back/Spine Narrative: Tender more paralumbar not flank CVA region. No rash. Extremity normal to inspection General Extremety ED: Negative for edema or tenderness General Extremity: Negative for edema Neuro oriented x3 and no sensory deficits noted Sensorium / Orientation: awake and alert Skin no rashes or lesions noted and no wounds MDM MDM MDM Narrative Medical decision making narrative: Interventions / MDM: Differential diagnosis: Complicated UTI, dysuria Diagnosis considered but do not suspect: Kidney stone however CT negative. My EKG interpretation: N/A Imaging independently reviewed and interpreted by myself: CT abdomen pelvis IV contrast: Bilateral ureteral stranding with stranding around the right kidney. Mild right hydro. No obstructive kidney stone noted. External documents reviewed: Previous urine cultures most recent in September 30 with gram-negative rods with E. coli. Previous sensitivities were pansensitive. ESBL negative. Test considered but not ordered:N/A ED course: Patient dysuria suprapubic discomfort with fevers. History of urinary tract infection last month. Laboratory studies obtain urine urine culture with concerns for complicated UTI. CT scan abdomen pelvis IV contrast we ordered. IV established for fluids Toradol. Also will start Pyridium with her dysuria. 1809: Urine results noting nitrites leukocytes bacteria with WBCs greater than 100. There were squamous cells however she is symptomatic. Culture pending IV Rocephin ordered. 1899: Clinically feeling much better. Antibiotics are running. White count of 14. Creatinine 1.27. Awaiting results of CT scan. CT scan consistent with pyelonephritis no obstructive stone was noted. Symptoms remain controlled. Mets to bed for antibiotics antiemetics. She will use Tylenol or Motrin as needed. She will follow-up with her urologist. All questions were answered. Re-evaluation: stable Disposition discussed with patient/family/significant other: Patient and friend Case discussed with consulting clinician: N/A This note was generated with [employer] dictation software. It may contain incorrect words, spelling, and punctuation that were not noted in checking the note before signing. Lab Data Labs: Laboratory Results - last 24 hr 10/26/24 10/26/24 10/26/24 17:39 17:39 17:55 WBC Cancelled 14.4 H Corrected WBC Cancelled RBC Cancelled 3.81 L Hgb Cancelled 10.9 L Hct Cancelled 33.2 L MCV Cancelled 87.1 MCH Cancelled 28.6 MCHC Cancelled 32.8 RDW Std Deviation Cancelled 44.7 H RDW Coeff of Kyree Cancelled 14.0 Plt Count Cancelled 208 MPV Cancelled 9.0 Immature Gran % (Auto) Cancelled 0.800 Neut % (Auto) Cancelled 74.8 H Lymph % (Auto) Cancelled 12.5 L [place] % (Auto) Cancelled 11.4 H Eos % (Auto) Cancelled 0.1 Baso % (Auto) Cancelled 0.4 Absolute Neuts (auto) Cancelled 10.7 H Absolute Lymphs (auto) Cancelled 1.79 Total Counted Cancelled Neutrophils % (Manual) Cancelled Band Neutrophils % Cancelled Lymphocytes % (Manual) Cancelled Monocytes % (Manual) Cancelled Eosinophils % (Manual) Cancelled Basophils % (Manual) Cancelled Metamyelocytes % Cancelled Myelocytes % Cancelled Promyelocytes % Cancelled Blast Cells % Cancelled Plasma Cell % (Manual) Cancelled Other Cells % Cancelled Nucleated RBC % Cancelled 0 Nucleated RBCs/100 WBC Cancelled Differential Comment Cancelled Diff Path Review Cancelled Hypersegmented Neuts Cancelled Atypical Lymphocytes Cancelled Reactive Lymphocytes Cancelled Smudge Cells Cancelled Toxic Granulation Cancelled Toxic Vacuolation Cancelled Dohle Bodies Cancelled Ethan Rods Cancelled Platelet Estimate Cancelled A Plt Morphology Comment Cancelled RBC Morphology Cancelled Cancelled NORM C+C Polychromasia Cancelled Hypochromasia Cancelled Basophilic Stippling Cancelled Anisocytosis Cancelled Microcytosis Cancelled Macrocytosis Cancelled Spherocytes Cancelled Sickle Cells Cancelled Target Cells Cancelled Tear Drop Cells Cancelled Ovalocytes Cancelled Stomatocytes Cancelled [place] Bodies Cancelled [place] Cells Cancelled Bite Cells Cancelled Crenated Cell Cancelled Acanthocytes (Spur) Cancelled Rouleaux Cancelled Schistocytes Cancelled Sodium 133 Potassium 4.4 Chloride 103 Carbon Dioxide 15.6 L Anion Gap 15 BUN 18 Creatinine 1.27 H Estim Creat Clear Calc 55.06 Est GFR (MDRD) Non-Af 47 L BUN/Creatinine Ratio 14.3 Glucose 119 H Calcium 9.1 Urine Color Yellow Urine Clarity Turbid Urine pH 5.0 Ur Specific [place] 1.015 Urine Protein 100 H Urine Glucose (UA) Normal Urine Ketones Negative Urine Occult Blood 50 H Urine Nitrite Positive H Urine Bilirubin 1 H Urine Urobilinogen Normal Ur Leukocyte Esterase 500 H Urine RBC 10-25 SEEN Urine WBC >100 SEEN Ur Squamous Epith Cells 50-100 SEEN Urine Bacteria 3+ Urine Mucus 0 SEEN Radiography Diagnostic Testing: Clinical Impression(s) from Imaging Studies Abdomen/Pelvis CT 10/26/24 17:30 IMPRESSION: 1. Findings suggestive of urinary tract infection, to include bilateral pyelonephritis and pyelitis/ureteritis. No obstructing stone. 2. Areas of cortical thinning at the upper and lower poles of the left kidney. Reading Location: [id number] Discharge Plan Triage Chief Complaint: Complaint ED Provider: Higinio Michelle Dx/Rx/DC Orders Clinical Impression: Acute pyelonephritis, Dysuria Instructions: ED Pyelonephritis, Female (Adult) Prescriptions: New ondansetron 4 mg tablet,disintegrating 4 mg PO Q8H PRN PRN (Reason: Nausea) Qty: 10 0RF cefdinir 300 mg capsule 300 mg PO Q12H Qty: 14 0RF No Action clonidine HCl 0.1 mg Tablet 0.1 mg PO BID cyanocobalamin (vitamin B-12) [Vitamin B-12] 1,000 mcg Tablet 1,000 mcg PO DAILY aspirin 81 mg Tablet,Delayed Release (Dr/Ec) 81 mg PO DAILY simvastatin 40 mg Tablet 40 mg PO DAILY insulin glargine [Lantus Solostar U-100 Insulin] 100 unit/mL (3 mL) Insulin Pen 50 unit SUBCUT DAILY insulin glargine [Lantus Solostar U-100 Insulin] 100 unit/mL (3 mL) Insulin Pen 50 unit SUBCUT QPM Rx Instructions: only took units last night d-mannose 500 mg Capsule 500 mg PO BID Probiotic 10 billion cell Capsule 10,000 mmu cells PO DAILY Ozempic 1 mg/dose (4 mg/3 mL) pen injector 1 mg subcut QWEEK propranolol 40 mg tablet 40 mg PO BID ergocalciferol (vitamin D2) 1,250 mcg (50,000 unit) capsule 1,250 mcg PO .COMPLEX Rx Instructions: 1,250 mcg orally twice weekly; cephalexin 500 mg capsule 500 mg PO Q6 7 Days Qty: 28 0RF Primary Care Provider: Jenna Barraza Referrals: Pamela Mcdonnell MD [Med Staff - Active Staff] - 1 Week Jenna Barraza PA [Primary Care Provider] - Activity Restrictions/Additional Instructions: Urine with infection culture pending. Previous cultures positive for E. coli. CT scan with IV contrast pyelonephritis with stranding of the right kidney inflammation of both ureters. No obstructive stone noted. Status post IV Rocephin. Taking finish antibiotic prescribed. Continue Tylenol or Motrin as needed as this is helping your symptoms. Zofran as needed for if you develop nausea or vomiting. If you develop any worsening symptoms not controlled medications, return to the ED for reevaluation. Otherwise follow-up with Dr. Mcdonnell. Print Language: Djib[place]ian Disposition Disposition: Home, Self Care Discharge Date/Time: 10/26/24 20:21
[2024-10-26 18:26] LABS: Differential Indicated SCAN CRITERIA MET
[2024-10-26 18:28] LABS: Anion Gap 15 (5-15); BUN 18 mg/dL (4-19); BUN/Creat Ratio 14.3 RATIO (10-20); Calcium,Total 9.1 mg/dL (7.6-11.0); Carbon Dioxide 15.6 mmol/L (21.0-32.0); Chloride 103 mmol/L (98-108); Creatinine, Serum 1.27 mg/dL (0.70-1.20); EST Glomerular Filtration Rate 47 (>60); Estimated Creatinine Clearance 55.06 ml/min (50-250); Glucose 119 mg/dL (70-99); Potassium 4.4 mmol/L (3.3-5.1); Sodium Level 133 mmol/L (133-145)
[2024-10-26] MEDS: Ceftriaxone 1 GM/50 ML BAG IV (18:31)
[2024-10-26 18:41] LABS: Platelet Estimate A (ADEQ); Red Cell Morphology NORM C+C NORMAL (NORM C&C)
[2024-10-26 19:00] VITALS: BP 105/86; PULSE 88; RESP 17; TEMP 37.3; O2SAT 98
[2024-10-26 20:00] VITALS: BP 108/88; PULSE 71; RESP 16; O2SAT 99
[2024-10-26 20:20] VITALS: BP 108/88; PULSE 71; RESP 16; TEMP 37; O2SAT 99
== END 2024-10-26 20:21 | disposition home or self-care (01) ==
PROVIDERS: Emergency Provider Emergency Medicine; PCP Physician Assistant Medical; Visit Provider Emergency Medicine
DX: R30.0 Dysuria (principal); Z79.4 Long term (current) use of insulin; E11.9 Type 2 diabetes mellitus without complications; N10 Acute pyelonephritis; E78.00 Pure hypercholesterolemia, unspecified; I10 Essential (primary) hypertension; Z79.82 Long term (current) use of aspirin; Z79.899 Other long term (current) drug therapy; Z90.710 Acquired absence of both cervix and uterus; Z90.49 Acquired absence of other specified parts of digestive tract; Z96.659 Presence of unspecified artificial knee joint
CPT/HCPCS: 74177; 80048; 81001; 85025; 87077; 87086; 87088; 87186; 96361; 96365; 96375; 99284; Q9967; A4216

== ENCOUNTER → 2024-11-24 | Outpatient (CLI) | payer OTHER, SELFPAY ==
--- NOTE | 2024-11-24 11:48 | US_ITS ---
PROCEDURE: KIDNEY AND BLADDER 11/24/2024 REASON FOR EXAM: UTI TECHNIQUE: KIDNEY AND BLADDER COMPARISON: CT from 10/26/2024 FINDINGS: Right kidney measures 11.7 cm and left kidney measures 10.7 cm. Focal rounded hyperechoic structure within the right kidney measuring 1.7 x 1.5 x 1.1 cm, nonspecific. No hydronephrosis. No renal stones within the left kidney. Urinary bladder is unremarkable. US/Kidney and Bladder IMPRESSION: No hydronephrosis. Focal rounded hyperechoic structure within the right kidney measuring 1.7 x 1.5 x 1.1 cm, nonspecific. Consider CT for further evaluation. Reading Location: [id number]
== END | disposition home or self-care (01) ==
LOC: US 11:44
PROVIDERS: PCP Physician Assistant Medical; Referring Provider Urology; Visit Provider Urology
DX: N39.0 Urinary tract infection, site not specified (principal); N13.30 Unspecified hydronephrosis
CPT/HCPCS: 76770

== ENCOUNTER → 2024-12-17 | Outpatient (CLI) | payer OTHER, SELFPAY ==
--- NOTE | 2024-12-17 16:50 | CT_ITS ---
EXAM: CT Abdomen and Pelvis Without and With Intravenous Contrast CLINICAL INDICATION: ABN FINDINGS ON IMAGING TECHNIQUE: Axial computed tomography images of the abdomen and pelvis without and with intravenous contrast. This CT exam was performed using one or more of the following dose reduction techniques: automated exposure control, adjustment of the mA and/or kV according to patient size, and/or use of iterative reconstruction technique. COMPARISON: CT Abdomen Pelvis dated 10/26/2024 FINDINGS: LUNG BASES: Unremarkable. No mass. No consolidation. ABDOMEN: LIVER: Fatty liver. GALLBLADDER AND BILE DUCTS: Gallbladder is surgically absent. No ductal dilation. PANCREAS: Unremarkable. No mass. No ductal dilation. SPLEEN: Unremarkable. No splenomegaly. ADRENALS: Unremarkable. No mass. KIDNEYS AND URETERS: Previously described emphysematous kidneys with perinephric fat stranding has resolved. Resolution of right hydroureteronephrosis. Left renal cyst. Stable cortical thinning of the upper and lower aspect of the left kidney. STOMACH AND BOWEL: Fecal retention in the colon consistent with constipation. No obstruction. No mucosal thickening. PELVIS: APPENDIX: No findings to suggest acute appendicitis. BLADDER: Unremarkable. No mass. No stones. REPRODUCTIVE: Unremarkable as visualized. ABDOMEN and PELVIS: INTRAPERITONEAL SPACE: Unremarkable. No free air. No significant fluid collection. BONES/JOINTS: Degenerative disc disease throughout the lumbar spine. Degenerative facet arthropathy throughout the lumbar spine, most prominent in the lower lumbar spine. No acute fracture. No dislocation. SOFT TISSUES: Unremarkable. VASCULATURE: Scattered calcified atherosclerotic disease of aorta. No abdominal aortic aneurysm. LYMPH NODES: Unremarkable. No enlarged lymph nodes. CT/CT Abd/Pelvis W/WO Contrast IMPRESSION: 1. Resolution of pyelonephritis/ureteritis, bilaterally. 2. Fecal retention in the colon consistent with constipation. 3. Degenerative changes lumbar spine as described. Reading Location[facility]
[2024-12-17 17:18] LABS: CREATININE FINGERSTICK < 1.0 mg/dL (0.55-1.02); EGFR FINGERSTICK > 60.0000 mL/min (>60)
== END | disposition home or self-care (01) ==
LOC: CT 16:40
PROVIDERS: PCP Physician Assistant Medical; Referring Provider Urology; Visit Provider Urology
DX: R93.89 Abnormal findings on diagnostic imaging of other specified body structures (principal)
CPT/HCPCS: 74178; Q9967; A4216